=== PATIENT | male | born 1955 | race Caucasian/White ===

== ENCOUNTER 2017-10-06 09:00 | Outpatient (RCR) | payer OTHER, SELFPAY ==
--- NOTE | 2017-10-07 15:22 | COCO.VHC ---
Consult Notes: Terrell and Mary Szymanski came into the office in follow up from our visit in April. Terrell now has a intermediate date and his insurance will end 11/04/17. He had clearly outlined his income from [employer], [employer] and Social Security Income. He also included Mary's intermediate and social security income. For 2018 we estimate with all income sources that they will make $20910.32. We looked over different insurance plans and Terrell decided he would like to move forward with [employer] [place] [employer] plan without Rx MOOP. We estimate he will receive $83 in APTC and will have a premium of $339 per month for 2018. We discussed coverage for Mary, as she has Medicare and will need prescription coverage now that she won't have insurance through Terrell's employer. We called Edgar at [place] [facility] [employer] and scheduled an appointment for them to meet with her to set up Part D benefits. We need to wait until October to set up coverage for November 2017 so Terrell and Mary will come by to see me Friday10/06/17 to finish enrollment in the MVP plan. I introduced them to Ada Bryant, BOBBY and [facility] Navigator. They will call her during open enrollment to discuss 2019, as the yearly income will be less for 2019 to they want to review the plans again.
--- NOTE | 2017-10-07 15:47 | PDOC.VHC_ITS ---
Consult Notes: Terrell and Mary Szymanski came into the office in follow up from our visit in April. Terrell now has a halfway date and his insurance will end 11/04/17. He had clearly outlined his income from [employer], [employer] and Social Security Income. He also included Mary's halfway and social security income. For 2018 we estimate with all income sources that they will make $ 95596.32. We looked over different insurance plans and Terrell decided he would like to move forward with [employer] [place] plan without Rx MOOP. We estimate he will receive $83 in APTC and will have a premium of $339 per month for 2018. We discussed coverage for Mary, as she has Medicare and will need prescription coverage now that she won't have insurance through Terrell's employer. We called Edgar at [place] [facility] [employer] and scheduled an appointment for them to meet with her to set up Part D benefits. We need to wait until October to set up coverage for November 2017 so Terrell and aMry will come by to see me Friday10/06/17 to finish enrollment in the MVP plan. I introduced them to Ada Bryant, BOBBY and [facility] Navigator. They will call her during open enrollment to discuss 2019, as the yearly income will be less for 2019 to they want to review the plans again.
--- NOTE | 2017-10-07 15:49 | COCO.VHC ---
New/Renewal Application Status: New Application Submitted?: Yes Date Submitted:: 10/06/17 # Enrolled:: 1 [facility] REP Name:: online Notes:: Terrell and Mary returned today to enroll Terrell in [facility] without RX MOOP plan. After the application processed he was eligible for APTC of $89.87, so his premium will be $332.23 per month with a start date of 11/05/17. I printed out the benefits information and he made his first premium payment while he was here with a confirmation number given of. [id number]. Terrell will call BOBBY Caballero here at [facility] if he has any further questions or concerns.
--- NOTE | 2017-10-07 15:57 | PDOC.VHC_ITS ---
New/Renewal Application Status: New Application Submitted?: Yes Date Submitted:: 10/06/17 # Enrolled:: 1 [facility] REP Name:: online Notes:: Terrell and Mary returned today to enroll Terrell in [facility] without RX MOOP plan. After the application processed he was eligible for APTC of $89.87, so his premium will be $332.23 per month with a start date of . I printed out the benefits information and he made his first premium payment while he was here with a confirmation number given of. [id number]. Terrell will call BOBBY Caballero here at [facility] if he has any further questions or concerns.
== END 2017-12-05 09:00 ==
LOC: COCO 09:00
PROVIDERS: PCP Family Medicine; Visit Provider Family Medicine
DX: R69 Illness, unspecified (principal)

== ENCOUNTER 2019-03-19 00:18 | Outpatient (CLI) | payer BC, SELFPAY ==
[2019-03-19 08:14] LABS: ALT 38 U/L (16-63); AST 38 U/L (15-37); Albumin 3.8 g/dL (3.4-5.0); Alkaline Phosphatase 81 U/L (46-116); Anion Gap 10.4 mmol/L (3-11); BUN 14 mg/dL (7-18); Bilirubin, Total 1.2 mg/dL (0.2-1.0); CO2 28.6 mmol/L (21.0-32.0); CREATININE 1.27 mg/dL (0.70-1.30); Calcium 9.1 mg/dL (8.5-10.1); Calculated LDL 129 mg/dL; Chloride 97 mmol/L (98-107); Cholesterol 236 mg/dL (<200); Glucose 95 mg/dL (74-106); HDL Cholesterol 90 mg/dL (40-60); Potassium 4.3 mmol/L (3.5-5.1); Sodium 136 mmol/L (136-145); Total Protein 7.4 g/dL (6.4-8.2); Triglyceride 87 mg/dL (<150)
== END 2019-03-19 00:38 ==
PROVIDERS: PCP Family Medicine; Visit Provider Family Medicine
DX: Z00.00 Encounter for general adult medical examination without abnormal findings (principal); I10 Essential (primary) hypertension; Z13.220 Encounter for screening for lipoid disorders
CPT/HCPCS: 36415; 80053; 80061

== ENCOUNTER 2020-03-22 01:51 | Outpatient (CLI) | payer OTHER, SELFPAY ==
[2020-03-22 08:26] LABS: HCT 33.5 % (40.0-50.0); HGB 11.9 g/dL (13.5-17.5); MCH 35.5 pg (27.0-33.0); MCHC 35.5 % (32.0-36.0); MPV 9.7 fL (8.0-11.0); Platelet Count 289 10^3/uL (130-400); RBC 3.35 10^6/uL (4.36-5.78); RDW 11.7 % (11.8-14.1); RDW-SD 42.7 fL; WBC 7.88 10^3/uL (4.4-10.8)
[2020-03-22 09:10] LABS: ALT 25 U/L (16-63); AST 32 U/L (15-37); Albumin 3.9 g/dL (3.4-5.0); Alkaline Phosphatase 78 U/L (46-116); Anion Gap 11.9 mmol/L (3-11); BUN 12 mg/dL (7-18); Bilirubin, Total 1.1 mg/dL (0.2-1.0); CO2 28.1 mmol/L (21.0-32.0); CREATININE 1.54 mg/dL (0.70-1.30); Calcium 8.5 mg/dL (8.5-10.1); Calculated LDL 91 mg/dL (<100); Chloride 94 mmol/L (98-107); Cholesterol 201 mg/dL (<200); Estimated GFR 45.56 (mL/min/1.73m2); Glucose 99 mg/dL (74-106); HDL Cholesterol 99 mg/dL (40-60); Potassium 3.8 mmol/L (3.5-5.1); Sodium 134 mmol/L (136-145); Total Protein 7.4 g/dL (6.4-8.2); Triglyceride 58 mg/dL (<150)
[2020-03-22 17:23] LABS: PSA, Screening 2.2 ng/mL (0.0-4.5)
== END 2020-03-22 02:11 ==
PROVIDERS: PCP Family Medicine; Visit Provider Family Medicine
DX: I10 Essential (primary) hypertension (principal); Z13.6 Encounter for screening for cardiovascular disorders; Z12.5 Encounter for screening for malignant neoplasm of prostate
CPT/HCPCS: 36415; 80053; 80061; 84153; 85027

== ENCOUNTER 2020-09-22 02:54 | Outpatient (CLI) | payer OTHER, SELFPAY ==
[2020-09-22 09:36] LABS: Abs Immature Grans 0.03 10^3/uL (0.0-0.06); Absolute Basophil Count 0.05 10^3/uL (0.0-0.2); Absolute Eosinophil Count 0.18 10^3/uL (0.0-0.7); Absolute Lymphocyte Count 1.25 10^3/uL (1.2-3.4); Absolute Monocyte Count 0.78 10^3/uL (0.1-0.8); Basophils % 0.8; Eosinophils % 3.1; HCT 31.5 % (40.0-50.0); HGB 11.2 g/dL (13.5-17.5); Immature Grans % 0.5; Lymphocytes % 21.2; MCH 36.1 pg (27.0-33.0); MCHC 35.6 % (32.0-36.0); MCV 101.6 fL (80-95); MPV 9.6 fL (8.0-11.0); Monocytes % 13.2; Neutrophils % 61.2; Nucleated RBC 0 %; Platelet Count 239 10^3/uL (130-400); RDW 11.6 % (11.8-14.1); RDW-SD 42.9 fL; WBC 5.89 10^3/uL (4.4-10.8)
[2020-09-22 10:58] LABS: Anion Gap 9.7 mmol/L (3-11); BUN 12 mg/dL (7-18); CO2 28.3 mmol/L (21.0-32.0); CREATININE 1.6 mg/dL (0.70-1.30); Calcium 8.2 mg/dL (8.5-10.1); Chloride 95 mmol/L (98-107); Estimated GFR 43.46 (mL/min/1.73m2); Glucose 98 mg/dL (74-106); Potassium 3.8 mmol/L (3.5-5.1); Sodium 133 mmol/L (136-145)
== END 2020-09-22 02:55 | disposition home or self-care (01) ==
LOC: LBO 02:54
PROVIDERS: PCP Family Medicine; Visit Provider Family Medicine
DX: N18.9 Chronic kidney disease, unspecified (principal)
CPT/HCPCS: 36415; 80048; 85025

== ENCOUNTER 2021-03-16 01:11 | Outpatient (CLI) | payer MEDICARE, SELFPAY ==
[2021-03-16 11:42] LABS: HCT 33.1 % (40.0-50.0); HGB 11.7 g/dL (13.5-17.5); MCHC 35.3 % (32.0-36.0); MCV 104.7 fL (80-95); MPV 9.9 fL (8.0-11.0); Platelet Count 234 10^3/uL (130-400); RBC 3.16 10^6/uL (4.36-5.78); RDW 11.4 % (11.8-14.1); RDW-SD 43.8 fL
[2021-03-16 13:25] LABS: ALT 21 U/L (16-63); AST 29 U/L (15-37); Albumin 3.7 g/dL (3.4-5.0); Anion Gap 13.6 mmol/L (3-11); BUN 11 mg/dL (7-18); Bilirubin, Total 0.5 mg/dL (0.2-1.0); CO2 24.4 mmol/L (21.0-32.0); CREATININE 1.3 mg/dL (0.70-1.30); Calcium 7.4 mg/dL (8.5-10.1); Calculated LDL 111 mg/dL (<100); Chloride 98 mmol/L (98-107); Cholesterol 217 mg/dL (<200); Estimated GFR 55.23 (mL/min/1.73m2); Glucose 86 mg/dL (74-106); HDL Cholesterol 93 mg/dL (40-60); Potassium 4.5 mmol/L (3.5-5.1); Sodium 136 mmol/L (136-145); Total Protein 7.3 g/dL (6.4-8.2); Triglyceride 66 mg/dL (<150); Vitamin B12 990 pg/mL (193-986)
[2021-03-16 14:00] LABS: Alkaline Phosphatase 86 U/L (46-116)
== END 2021-03-16 01:12 | disposition home or self-care (01) ==
LOC: LBO 01:11
PROVIDERS: PCP Family Medicine; Visit Provider Family Medicine
DX: N18.9 Chronic kidney disease, unspecified (principal); I10 Essential (primary) hypertension; D64.9 Anemia, unspecified; Z13.220 Encounter for screening for lipoid disorders; Z00.00 Encounter for general adult medical examination without abnormal findings
CPT/HCPCS: 36415; 80053; 80061; 85027; 82607

== ENCOUNTER 2021-04-09 02:40 | Outpatient (CLI) | payer MEDICARE, SELFPAY ==
[2021-04-09 11:02] LABS: GGT 45 U/L (15-85); Magnesium 1.3 mg/dL (1.8-2.4)
== END 2021-04-09 02:41 | disposition home or self-care (01) ==
LOC: LBO 02:40
PROVIDERS: PCP Family Medicine; Visit Provider Family Medicine
DX: N18.9 Chronic kidney disease, unspecified; Z87.898 Personal history of other specified conditions
CPT/HCPCS: 36415; 82310; 82977; 83735

== ENCOUNTER 2021-04-23 01:55 | Outpatient (CLI) | payer MEDICARE, SELFPAY ==
[2021-04-23 12:28] LABS: Calcium 9.2 mg/dL (8.5-10.1); Magnesium 1.2 mg/dL (1.8-2.4)
== END 2021-04-23 01:56 | disposition home or self-care (01) ==
LOC: LBO 01:55
PROVIDERS: PCP Family Medicine; Visit Provider Family Medicine
DX: E83.42 Hypomagnesemia (principal); N18.9 Chronic kidney disease, unspecified
CPT/HCPCS: 36415; 82310; 83735

== ENCOUNTER 2021-04-30 03:43 | Outpatient (CLI) | payer MEDICARE, SELFPAY ==
[2021-04-30 14:39] LABS: ALT 20 U/L (16-63); AST 21 U/L (15-37); Albumin 3.7 g/dL (3.4-5.0); Alkaline Phosphatase 111 U/L (46-116); Anion Gap 9.2 mmol/L (3-11); BUN 17 mg/dL (7-18); Bilirubin, Total 0.2 mg/dL (0.2-1.0); CO2 27.8 mmol/L (21.0-32.0); CREATININE 1.6 mg/dL (0.70-1.30); Calcium 9.2 mg/dL (8.5-10.1); Chloride 102 mmol/L (98-107); Estimated GFR 43.33 (mL/min/1.73m2); Glucose 104 mg/dL (74-106); Magnesium 1.2 mg/dL (1.8-2.4); Potassium 4.4 mmol/L (3.5-5.1); Sodium 139 mmol/L (136-145); Total Protein 7.7 g/dL (6.4-8.2)
== END 2021-04-30 03:44 | disposition home or self-care (01) ==
LOC: LBO 03:43
PROVIDERS: PCP Family Medicine; Visit Provider Family Medicine
DX: I12.9 Hypertensive chronic kidney disease with stage 1 through stage 4 chronic kidney disease, or unspecified chronic kidney disease (principal); E83.42 Hypomagnesemia
CPT/HCPCS: 36415; 80053; 83735

== ENCOUNTER 2021-05-21 01:48 | Outpatient (CLI) | payer MEDICARE, SELFPAY ==
[2021-05-21 12:51] LABS: ALT 20 U/L (16-63); AST 17 U/L (15-37); Albumin 3.5 g/dL (3.4-5.0); Alkaline Phosphatase 109 U/L (46-116); Anion Gap 9.5 mmol/L (3-11); BUN 24 mg/dL (7-18); Bilirubin, Total 0.5 mg/dL (0.2-1.0); CO2 26.5 mmol/L (21.0-32.0); CREATININE 2.1 mg/dL (0.70-1.30); Chloride 103 mmol/L (98-107); Estimated GFR 31.66 (mL/min/1.73m2); Glucose 90 mg/dL (74-106); Magnesium 1.5 mg/dL (1.8-2.4); Potassium 4.7 mmol/L (3.5-5.1); Sodium 139 mmol/L (136-145); Total Protein 7.4 g/dL (6.4-8.2)
== END 2021-05-21 01:49 | disposition home or self-care (01) ==
LOC: LBO 01:48
PROVIDERS: PCP Family Medicine; Visit Provider Family Medicine
DX: I10 Essential (primary) hypertension (principal); N18.9 Chronic kidney disease, unspecified; E83.42 Hypomagnesemia
CPT/HCPCS: 36415; 80053; 83735

== ENCOUNTER 2021-06-11 14:07 | Outpatient (REF) | payer MEDICARE, SELFPAY ==
[2021-06-12 12:40] LABS: BUN 23 mg/dL (7-18); CO2 25.2 mmol/L (21.0-32.0); CREATININE 1.5 mg/dL (0.70-1.30); Estimated GFR 46.68 (mL/min/1.73m2); Magnesium 1.5 mg/dL (1.8-2.4); Potassium 4.8 mmol/L (3.5-5.1); Sodium 138 mmol/L (136-145)
== END 2021-06-11 14:08 | disposition home or self-care (01) ==
LOC: NCHCN 14:07
PROVIDERS: PCP Family Medicine; Visit Provider Family Medicine
DX: E83.42 Hypomagnesemia (principal)
CPT/HCPCS: 80048; 84520; 82374; 82565; 83735; 84132; 84295

== ENCOUNTER 2021-06-19 01:32 | Outpatient (CLI) | payer MEDICARE, SELFPAY ==
[2021-06-19 12:45] LABS: Calcium 9.3 mg/dL (8.5-10.1); Glucose 107 mg/dL (74-106)
== END 2021-06-19 01:33 | disposition home or self-care (01) ==
LOC: LBO 01:32
PROVIDERS: PCP Family Medicine; Visit Provider Family Medicine
DX: E83.42 Hypomagnesemia (principal); N18.9 Chronic kidney disease, unspecified; R79.89 Other specified abnormal findings of blood chemistry
CPT/HCPCS: 36415; 82947; 82310

== ENCOUNTER 2021-10-29 04:29 | Outpatient (CLI) | payer MEDICARE, SELFPAY ==
[2021-10-29 11:01] LABS: BUN 20 mg/dL (7-18); CREATININE 1.9 mg/dL (0.70-1.30); Calcium 8.8 mg/dL (8.5-10.1); Chloride 99 mmol/L (98-107); Estimated GFR 35.54 (mL/min/1.73m2); Glucose 89 mg/dL (74-106); Magnesium 1.3 mg/dL (1.8-2.4); Potassium 4.6 mmol/L (3.5-5.1); Sodium 134 mmol/L (136-145)
== END 2021-10-29 04:30 | disposition home or self-care (01) ==
LOC: LBO 04:29
PROVIDERS: PCP Family Medicine; Visit Provider Family Medicine
DX: E83.42 Hypomagnesemia (principal); R79.89 Other specified abnormal findings of blood chemistry
CPT/HCPCS: 36415; 80048; 83735

== ENCOUNTER 2022-05-07 03:40 | Outpatient (CLI) | payer MEDICARE, SELFPAY ==
[2022-05-07 13:39] LABS: ALT 39 U/L (16-63); AST 68 U/L (15-37); Alkaline Phosphatase 88 U/L (46-116); Anion Gap 13.2 mmol/L (3-11); BUN 15 mg/dL (7-18); Bilirubin, Total 0.8 mg/dL (0.2-1.0); CO2 23.8 mmol/L (21.0-32.0); CREATININE 1.6 mg/dL (0.70-1.30); Calcium 9.5 mg/dL (8.5-10.1); Calculated LDL 88 mg/dL (<100); Chloride 97 mmol/L (98-107); Cholesterol 237 mg/dL (<200); Estimated GFR 46.64 (mL/min/1.73m2); Glucose 80 mg/dL (74-106); HDL Cholesterol 143 mg/dL (40-60); Magnesium 1.1 mg/dL (1.8-2.4); Potassium 4.3 mmol/L (3.5-5.1); Sodium 134 mmol/L (136-145); Total Protein 7.7 g/dL (6.4-8.2); Triglyceride 30 mg/dL (<150)
[2022-05-07 13:57] LABS: Vitamin D 25 Total 52.5 ng/mL (30-100)
[2022-05-07 22:53] LABS: PSA, Screening 2.5 ng/mL (<=4.5)
== END 2022-05-07 03:41 | disposition home or self-care (01) ==
LOC: LOS 03:40
PROVIDERS: PCP Family Medicine; Visit Provider Family Medicine
DX: N18.9 Chronic kidney disease, unspecified (principal); E55.9 Vitamin D deficiency, unspecified; Z12.5 Encounter for screening for malignant neoplasm of prostate; R79.89 Other specified abnormal findings of blood chemistry; I10 Essential (primary) hypertension
CPT/HCPCS: 36415; 80053; 80061; 82306; 84153; 83735

== ENCOUNTER → 2022-06-26 10:42 | Outpatient (BNVA) | payer MEDICARE, SELFPAY | PROVIDERS: PCP Family Medicine; Referring Provider Family Medicine; Visit Provider Surgery | DX: Z12.11 Encounter for screening for malignant neoplasm of colon (principal) ==

== ENCOUNTER 2022-07-11 09:01 | Day surgery (SDC) | payer MEDICARE, SELFPAY ==
--- NOTE | 2022-07-10 20:54 | W.PM.DSUDISC ---
Date of service: 07/11/22 Time of Service: 10:54 Discharge Plan Disposition Patient Disposition: Home Condition: Good Discharge Details Reason For Visit: Colonoscopy Attending Provider: Crow Davis Primary Care Provider: Maria R Deras Home Meds and New Rx's Prescriptions: Continued losartan 100 mg tablet 100 mg PO DAILY magnesium L-lactate [Magtab] 84 mg tablet extended release 84 mg PO TID sildenafil [Viagra] 50 mg tablet 50 mg PO DAILY PRN Rx Instructions: administer 30 minutes to 4 hours before activity mecobalamin (vitamin B12) 1,000 mcg tablet,chewable 1,000 mcg PO DAILY multivitamin [Daily Value] 1 EACH tablet 1 tab PO DAILY aspirin [Aspir-81] 81 MG tablet,delayed release (DR/EC) 2 tab PO DAILY folic acid 1 MG tablet 1 mg PO DAILY Qty: 30 0RF thiamine mononitrate (vit B1) [Vitamin B-1 (mononitrate)] 100 MG tablet 100 mg PO DAILY Qty: 30 0RF Discontinued polyethylene glycol 3350 17 gram/dose powder 238 g PO ONCE Qty: 238 0RF Rx Instructions: take per colonoscopy instructions bisacodyl [Dulcolax (bisacodyl)] 5 mg tablet,delayed release (DR/EC) 5 mg PO ONCE Qty: 4 0RF Rx Instructions: take per colonoscopy instructions Discharge Instructions Instructions: Diverticulosis (GEN), Diverticulosis Diet (GEN) Additional Instructions: Terrell, we were able to complete your colonoscopy today without any difficulty. I did not see any signs of tumors or polyps. However, you do have fairly extensive sigmoid diverticulosis. These are weak spots in the wall of the large intestine. I have attached some information here regarding general management of diverticular disease. Although many patients have diverticulosis without any symptoms, some experience pain, inflammation, and bleeding. If you notice any type of sharp pain which typically occurs in the left side of your lower abdomen, this could be a sign of inflammation of the diverticula. If that were to occur, I would notify your primary care physician. This is typically treated by modifying your diet, and occasionally with antibiotics. 1. If tolerated, consume a soft, low fiber diet for 1-2 days. 2. Do not drive, drink alcohol, operate machinery, make critical decisions, or do activities that require coordination or balance for 24 hours. 3. Because air was put into your colon during the procedure, expelling air from your rectum (passing gas or farting) is normal. 4. You may not have a bowel movement for 1-3 days because of the colonoscopy prep. This is normal. 5. Go directly to the emergency room if you notice any of the following: Develop chills (warm to touch), or if you have a thermometer and your temperature is above 101 Difficulty breathing or difficultly swallowing Persistent vomiting Severe abdominal pain, other than gas cramps Severe chest pain Black, tarry stools Any bleeding ? exceeding one tablespoon 6. Call your physician if the site where your intravenous was started becomes red, swollen, painful, and warm to touch. 7. Your physician has reviewed your pre-procedure medications. Please continue to take those medications as previously ordered. You will be given specific information/education regarding any changes to your medications before leaving. Activity:: Activity as Tolerated Diet:: As Tolerated Discharge Orders Discharge Orders: Discharge Order (Routine); Ordered 07/10/22 Ordered By: Crow Davis DS: Diagnosis Discharge Diagnosis (1) Screening for colon cancer: Status: Acute Asessment and Plan: Negative screening colonoscopy
--- NOTE | 2022-07-10 20:55 | W.COLOREPORT ---
Date of service: 07/04/22 Time of Service: 10:56 Colonoscopy Report Date of procedure: 07/11/22 Pre-op diagnosis general: Screening colonoscopy Post-op diagnosis procedure note: other (Diverticulosis) Procedure: Colonoscopy Surgeon: Crow Davis Anesthesia Type: General:No Airway and General LMA/ETT Estimated blood loss (mL): 0 Pathology: none sent Complications: None Disposition: same day Indications: Terrell is a 67-year-old male here for his first screening colonoscopy Prep: Miralax/Dulcolax Procedure Start Time: 10:24 Procedure End Time: 10:36 Retraction Time: 7 Findings: Extensive diverticulosis Procedure Description: After the induction of monitored anesthetic care, and with the patient in left lateral decubitus position, I began by performing an external anorectal exam.? Perineum and skin were normal, as was the anal verge.? There was no evidence of external hemorrhoids.? Next, I performed a digital rectal exam.? I did not appreciate any abnormal findings.? Next, I advanced a colonoscope into the rectal vault.? I performed retroflexion.? This was normal.? Using insufflation, I then advanced the colonoscope beyond the rectal folds and into the sigmoid colon before advancing towards the cecum.? The quality of the prep was adequate.? The scope was noted to be in the cecum by identification of the ileocecal valve and appendiceal orifice.? I then began withdrawing the colonoscope using repeated irrigation as necessary for full evaluation of the colonic mucosa. There was extensive sigmoid diverticulosis. ?Once the scope was withdrawn to the level of the rectum, great care was taken to examine portions of the rectal folds.? Finally, the scope was withdrawn and the patient was brought to the same-day surgery recovery unit as the anesthetic wore off. ?The findings and instructions were shared with the patient prior to discharge.
[2022-07-11 09:26] VITALS: BP 162/99; PULSE 109; RESP 18; TEMP 36.4; O2SAT 98
--- NOTE | 2022-07-11 09:49 | ANES.PREOP_ITS ---
General Info Date of Service Date Performed: 07/11/22 Height: 5 ft 8 in Weight: 71.8 kg Body Mass Index (BMI): 24.0 Surgical Procedure: Operation Date: 07/11/22 10:35 Proposed Procedure Side Surgeon sima Davis MD Meds Allergies and Home Medications Allergies Allergy/AdvReac Type Severity Reaction Status Date / Time No Known Allergies Allergy Unverified 07/11/22 09:33 Home Medication Medication Instructions Recorded aspirin 81 mg tablet,delayed 2 tab PO DAILY 03/15/15 release (Aspir-) multivitamin (Daily Value tablet) 1 tab PO DAILY 03/15/15 folic acid 1 mg tablet 1 mg PO DAILY #30 tabs 03/27/15 thiamine mononitrate (vit B1) 100 100 mg PO DAILY #30 tabs 03/27/15 mg tablet (Vitamin B-1 (mononitrate)) losartan 100 mg tablet 100 mg PO DAILY 01/25/22 magnesium L-lactate 84 mg 84 mg PO TID 01/25/22 tablet,extended release (Magtab) mecobalamin (vitamin B12) 1,000 1,000 mcg PO DAILY 01/25/22 mcg chewable tablet sildenafil 50 mg tablet (Viagra) 50 mg PO DAILY PRN 01/25/22 Current Visit Medications: Current Medications Generic Name Dose Route Start Last Admin Trade Name Freq PRN Reason Stop Dose Admin Hyoscyamine Sulfate 0.125 mg 07/10/22 20:56 Hyoscyamine 0.125 Mg Sl/Oral/Chew SL 07/11/22 20:55 PRN PRN Ringer's Solution 1,000 mls @ 80 mls/hr 07/11/22 06:00 IV 08/09/22 23:59 INFUSION [facility] IV Miscellaneous Supplies 1 each 07/11/22 06:00 Iv Access IV 08/09/22 23:59 DIRECTED [facility] Ondansetron HCl 4 mg 07/10/22 20:56 Ondansetron 4 Mg/2 Ml Vial IVP Q4H PRN PRN Nausea / Vomiting Sodium Chloride 0 ml 07/11/22 06:00 Normal Saline Flush 10 Ml Syr IV 08/09/22 23:59 PRN PRN Sodium Chloride 0 ml 07/11/22 06:00 Normal Saline 10 Ml Vial IJ 08/09/22 23:59 DIRECTED PRN Sterile Water 0 ml 07/11/22 06:00 Water,Injection,Sterile 10 Ml Vial IJ 08/09/22 23:59 DIRECTED PRN PFSH Active Problems Active Problems: Problem Status Onset Code UTI (urinary tract infection) N39.0 Alcohol withdrawal F10.239 Metabolic encephalopathy G93.41 Rash R21 Hypokalemia E87.6 Hypomagnesemia E83.42 Hypocalcemia E83.51 Pneumonia J18.9 Respiratory failure, acute J96.00 Delirium tremens F10.231 Sensory hearing loss, bilateral 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 Abnormal auditory perception H93.299 Foreign body in left ear T16.2XXA Hypertension I10 Screening for colon cancer Z12.11 Medical History Medical History Sammy's disease Tobacco Smoking/Tobacco Use Status: Current-Occasional Tobacco Type: pipe Alcohol Alcohol Intake: current Alcohol intake frequency: 3 or more drinks per day Alcohol type: beer and hard liquor Substance Use Substance use type: does not use Details: Per 4-5 beer or liquor every day Vital Signs and Lab Results Vital Signs Most Recent Vital Signs in EMR: Most Recent Vital Signs Temp Pulse Resp BP Pulse Ox 36.4 C L 109 H 18 162/99 H 98 07/11/22 09:26 07/11/22 09:26 07/11/22 09:26 07/11/22 09:26 07/11/22 09:26 Lab Results Blood Type / Crossmatch: No Data to Display Complete Blood Count: No Data to Display Complete Metabolic Panel: No Data to Display Liver Function Panel: No Data to Display Coagulation Panel: No Data to Display Cardiac Panel: No Data to Display Arterial Blood Gas: No Data to Display Venous Blood Gas: No Data to Display Pancreas Panel: No Data to Display Thyroid Panel: No Data to Display Infectious Disease: No Data to Display Blood Cultures: No Data to Display Toxicology Panel: No Data to Display Imaging and Studies Imaging and Studies Study information below may be from another EMR and interpreted by another provider. Please see original notes in EMR for more complete details. Echocardiogram Summary: Summary: 1. Left ventricle: The cavity size was at the lower limits of normal. Wall thickness was at the upper limits of normal. Systolic function was normal. The estimated ejection fraction was 55-60%. Wall motion was normal; there were no regional wall motion abnormalities. Some findings suggest diastolic dysfunction. 2. Aortic valve: Mildly calcified annulus. Trileaflet; mildly thickened leaflets. 3. Right ventricle: The cavity size was mildly dilated. Wall thickness was normal. Systolic function was mildly reduced. 05/22 Anesthesia Assessment and Plan Anesthesia History Personal History: No History of Anesthesia Complications Family History: No Family History of Anesthesia Complications Exercise Tolerance Exercise Tolerance: Metabolic Equivalents>4 Pertinent Negatives Pertinent Negatives: No Symptoms of GERD Cardiac & Pulmonary Exam Cardiac Exam: Normal S1/S2 Heart Sounds Pulmonary Exam: Clear Bilateral Breath Sounds Implantable Cardiac Device Does patient have a Pacemaker or an ICD?: No Airway Exam Known Difficult Airway: No Mallampati Class: 3 Mouth Opening: Normal (> 3cm) Thyromental Distance: Greater than 3 cm Neck Range of Motion: Full ROM Neck Circumference: Normal Teeth Condition: Normal Dentition ASA Classification ASA Score: ASA 2 Emergency Case?: No NPO Status NPO Status: NPO Clears >2 hours, Solids >8 hours Anesthesia Plan Resuscitation Status: Full Code Anesthesia Technique: General Anesthesia Airway Planned: Natural Airway Pain Management: Surgeon and patient request nerve block Monitors Used: Standard Monitors
[2022-07-11] MEDS: Lactated Ringers 1,000 ML 80 ML IV (09:55)
[2022-07-11 10:45] VITALS: BP 132/90; PULSE 94; RESP 16; TEMP 37.2; O2SAT 97
[2022-07-11 10:56] VITALS: BMI 24.0
[2022-07-11 11:14] VITALS: BP 166/97; PULSE 83; RESP 18; TEMP 36.5; O2SAT 100
--- NOTE | 2022-07-11 11:18 | W.ANESPOSTOP ---
Postoperative Evaluation Date, Time and Location Date Performed: 07/11/22 Time Performed: 10:50 Patient Location: Day Surgery Unit Vital Signs Most Recent Imported Vital Signs: Most Recent Vital Signs Temp Pulse Resp BP Pulse Ox 37.2 C 94 H 16 132/90 97 07/11/22 10:45 07/11/22 10:45 07/11/22 10:45 07/11/22 10:45 07/11/22 10:45 Pain Score Most Recent Pain Score: Most Recent Pain Score Pain Level 0 07/11/22 10:45 Assessment Mental Status: Awake (Alert & Oriented to Patient Baseline) Airway and Respiratory Function: Patent airway with normal (patient baseline) respiratory exam Cardiovascular Function: Hemodynamically Stable Hydration Status: Adequately Hydrated Nausea & Vomiting: No Nausea or Vomiting Pain: Pt. Denies Any Pain Peripheral Nerve Block: Patient did not receive a nerve block
== END 2022-07-11 11:28 | disposition home or self-care (01) ==
PROVIDERS: PCP Family Medicine; Visit Provider Surgery
PROC: 0DJD8ZZ Inspection of Lower Intestinal Tract, Via Natural or Artificial Opening Endoscopic (ICD-10-PCS; CPT 45378; principal; 2022-07-11 10:30)
DX: Z12.11 Encounter for screening for malignant neoplasm of colon (principal); K57.30 Diverticulosis of large intestine without perforation or abscess without bleeding
CPT/HCPCS: G0121

== ENCOUNTER 2023-05-12 05:00 | Outpatient (CLI) | payer MEDICARE, SELFPAY ==
[2023-05-12 08:48] LABS: ALT 28 U/L (16-63); AST 30 U/L (15-37); Albumin 3.5 g/dL (3.4-5.0); Alkaline Phosphatase 98 U/L (46-116); Anion Gap 9.2 mmol/L (3-11); BUN 13 mg/dL (7-18); Bilirubin, Total 0.6 mg/dL (0.2-1.0); CO2 27.8 mmol/L (21.0-32.0); CREATININE 1.7 mg/dL (0.70-1.30); Calcium 9.4 mg/dL (8.5-10.1); Calculated LDL 102 mg/dL (<100); Chloride 95 mmol/L (98-107); Cholesterol 235 mg/dL (<200); Glucose 105 mg/dL (74-106); HDL Cholesterol 124 mg/dL (40-60); Potassium 4.1 mmol/L (3.5-5.1); Sodium 132 mmol/L (136-145); Triglyceride 47 mg/dL (<150)
[2023-05-12 08:55] LABS: Vitamin D 25 Total 57.5 ng/mL (30-100)
[2023-05-12 08:57] LABS: GGT 72 U/L (15-85)
[2023-05-12 18:31] LABS: PSA, Screening 2.7 ng/mL (<=4.5)
== END 2023-05-12 05:01 | disposition home or self-care (01) ==
LOC: LBO 05:00
PROVIDERS: PCP Family Medicine; Visit Provider Family Medicine
DX: Z00.00 Encounter for general adult medical examination without abnormal findings (principal)
CPT/HCPCS: 36415; 80053; 80061; 82306; 84153; 82977

== ENCOUNTER 2024-06-17 02:30 | Outpatient (CLI) | payer MEDICARE, SELFPAY ==
[2024-06-17 09:54] LABS: HCT 32.2 % (40.0-50.0); HGB 11.6 g/dL (13.5-17.5); MCH 37.3 pg (27.0-33.0); MCV 104 fL (80-95); MPV 12.2 fL (8.0-11.0); Platelet Count 181 10^3/uL (130-400); RBC 3.11 10^6/uL (4.36-5.78); RDW 12.2 % (11.8-14.1); RDW-SD 46.2 fL; WBC 8.01 10^3/uL (4.4-10.8)
[2024-06-17 10:31] LABS: ALT 33 U/L (16-63); AST 58 U/L (15-37); Albumin 3.3 g/dL (3.4-5.0); Alkaline Phosphatase 115 U/L (46-116); Anion Gap 11.9 mmol/L (3-11); BUN 12 mg/dL (7-18); Bilirubin, Total 0.5 mg/dL (0.2-1.0); CO2 26.1 mmol/L (21.0-32.0); Calculated LDL 61 mg/dL (<100); Chloride 97 mmol/L (98-107); Cholesterol 204 mg/dL (<200); Estimated GFR 35.24 (mL/min/1.73m2); Glucose 84 mg/dL (74-106); HDL Cholesterol 134 mg/dL (>or=40); Potassium 4.2 mmol/L (3.5-5.1); Sodium 135 mmol/L (136-145); Total Protein 7.3 g/dL (6.4-8.2); Triglyceride 47 mg/dL (<150); Vitamin D 25 Total 71 ng/mL (30-100)
== END 2024-06-17 02:31 | disposition home or self-care (01) ==
PROVIDERS: PCP Family Medicine; Visit Provider Family Medicine
DX: Z00.00 Encounter for general adult medical examination without abnormal findings (principal)
CPT/HCPCS: 36415; 80053; 80061; 82306; 85027